=== PATIENT | female | born 1965 | race Caucasian/White ===

== ENCOUNTER → 2021-03-03 | Outpatient (CLI) | payer OTHER ==
[~2021-03-03] MED LIST: ALPR0.25 PO; HYDR25TA6 PO
== END | disposition home or self-care (01) ==
LOC: CFH 13:05
PROVIDERS: ATTEND Obstetrics & Gynecology
DX: Z12.31 Encounter for screening mammogram for malignant neoplasm of breast (principal)
CPT/HCPCS: 77063; 77067